=== PATIENT | female | born 1995 | race Caucasian/White ===

== ENCOUNTER 2020-04-21 04:04 | Emergency (ER) | payer SELFPAY ==
[2020-04-21] MEDS ORDERED: Ondansetron ODT 4 MG TAB ONE (04:52)
[2020-04-21 18:17] LABS: SARS-CoV-2 MS2 Positive; SARS-CoV-2 N Gene Negative; SARS-CoV-2 S Gene Negative; SARS-CoV-2 by NAA Not Detected (NotDetected); SARS-CoV-2 orf1ab Negative
== END 2020-04-21 04:55 | disposition home or self-care (01) ==
LOC: BURERS 04:04
DX: B34.9 Viral infection, unspecified (principal); R11.10 Vomiting, unspecified; Z20.828 Contact with and (suspected) exposure to other viral communicable diseases
CPT/HCPCS: 87635; 87804; 99283; Q0162; U0003